=== PATIENT | female | born 1955 | race Caucasian/White ===

== ENCOUNTER 2020-03-15 05:18 | Inpatient (IN) ==
--- NOTE | 2020-03-15 05:49 | Emergency Department Note ---
Impression & Plan Dysphagia, Dental infection ED Provider Note NAME: ASHIA CARRILLO AGE: 64 SEX: F ARRIVES VIA: Walk-In INFORMANT: Patient ED PROVIDER(S): Cristal Escamilla DO CHIEF COMPLAINT: Difficulty swallowing PLAN: Disposition: Admission to the [facility] service Condition: Fair MEDICAL DECISION MAKING: This is a 64-year-old female patient who developed an infected tooth 2 days ago. She went to urgent care yesterday and was started on Augmentin and ibuprofen. Approximately 6 hours ago, the patient developed some difficulty swallowing. The patient was given IV Decadron here in the emergency department along with a dose of IV Unasyn. She went for CT scan of the soft tissues of the neck to rule out submental abscess or airway compromise. The patient has significant supraglottic region edema but no specific abscess or airway compromise. The patient continues to have difficulty with swallowing. She will require ENT evaluation. [facility] for [facility]. Triage Nursing notes reviewed and agree them. Vital Signs: reviewed and remarkable for hypertension Differential diagnosis: Dental abscess, Chad's angina, compromised airway, neck abscess ER treatment provided: IV Decadron IV Unasyn Diagnostics interpreted by me: Cardiac Monitoring: Normal sinus rhythm at a rate of 84 Laboratory studies: See below Imaging studies: As per radiology CT soft tissue neck w con CT DOSE: 444.31 mGycm CLINICAL HISTORY: Neck pain and swelling. Possible abscess. TECHNIQUE: Helical images were acquired during intravenous administration of cc of Optiray 320. A dose lowering technique was utilized adhering to the principles of ALARA. COMPARISON STUDY: None. FINDINGS: The visualized portions of the lung apices are unremarkable. There is mild ectasia of the ascending thoracic aorta. 101 There is a left submandibular edema. No discrete salivary gland masses are visualized. There is no pathologic adenopathy by size criteria. Mildly prominent left jugulodigastric lymph nodes are likely reactive There are no fluid collections suspicious for abscess. There is left supraglottic edema. There is mild narrowing of the airway. There is effacement the left piriform sinus. There is a 12 mm hypodensity centrally on the left which is mildly narrowing the airway. This could represent focal edema, a polyp, or mucous secretion. ENT consultation for direct visualization is recommended in follow-up.. There is left parapharyngeal edema with inflammatory changes involving the left submandibular gland. There is mild left facial edema. There is poor dentition with multiple dental caries. IMPRESSION: 1. Poor dentition with multiple dental caries 2. Left parapharyngeal edema. There also involves the left submandibular gland. There is mild left facial edema. 3. 12 mm hypodensity involving the left supraglottic region with effacement of left piriform sinus. This could represent focal edema, a polyp, or mucous secretion. ENT consultation for direct visualization is recommended in follow-up 4. No current evidence of a focal abscess. HPI: 64/F arrives for evaluation of dysphagia. The patient developed an infected tooth on Sunday afternoon. On Sunday afternoon, the patient went to urgent care where she was prescribed Augmentin and ibuprofen. Around 0 last evening, the patient developed some dysphagia. The patient was concerned this morning when she was having increased difficulty swallowing and discomfort to the left side of her neck. ROS: See above HPI for pertinent positives & negatives. A total of 10 systems reviewed and were otherwise negative. PAST MEDICAL HISTORY:See Below PAST SURGICAL HISTORY:See Below FAMILY HISTORY:See Below SOCIAL HISTORY:See Below HOME MEDICATIONS:See list ALLERGIES:None VITALS:See Below PHYSICAL EXAMINATION: HEENT: Head - normocephalic and atraumatic Pupils are equal, round, and reactive to light. Extraocular eye muscles are intact, and sclera are anicteric. Nose - moist nasal mucosa without discharge. Mouth - moist buccal mucosa with poor dentition. There is 1 remaining left lower molar that appears to be infected with surrounding gingival edema and erythema. Oropharynx is nonerythematous and there is no tonsillar exudate or edema noted. Neck: A fullness to the left side of her neck that is slightly painful to touch. There is no edema or fullness to the submental region of her neck. She has mildly enlarged left-sided anterior cervical lymph nodes Heart: Regular rate and rhythm. There is a normal S1 and S2 with no murmurs, clicks, or gallops appreciated. Lungs: Clear to auscultation bilaterally with no wheezes, rales, or rhonchi. Abdomen: Soft, completely nontender, nondistended, with good bowel sounds. There are no palpable pulsatile masses or hepatosplenomegaly. There is no guarding, rigidity, or rebound noted. Extremities: No evidence of cyanosis, clubbing, or edema. There are easily palpable peripheral pulses. Skin: warm and dry with good turgor and no rashes. ED COURSE: Times/Reassessments: 0530: The patient was evaluated in room B4. A complete history and physical was performed. An IV lock was initiated and labs were drawn as above. An order was placed for continuous cardiac monitoring. The patient was in a normal sinus rhythm at a rate of 93. The patient will be given a dose of IV Decadron. 0650: Patient was reevaluated at this time. The patient will be given a dose of IV Unasyn. 0725: I discussed the case with Dr. Montiel from radiology. 0800: I [facility] Cristal Escamilla DO Past Med/Surg History Medical History (Updated 03/15/20 @ 08:04 by Cristal Escamilla DO) Breast cancer Fall Fracture of right distal radius Head injury Polycythemia vera Right distal ulnar fracture Right rib fracture Traumatic hematoma of forehead Surgical History History of colon resection History of mastectomy Previous section Family History Other No pertinent family history in first degree relatives Social History Smoking Status: Never smoker Preferred Language: Chadian Feels Safe at Home: Yes Allergies Allergies Allergy/AdvReac Type Severity Reaction Status Date / Time No Known Allergies Allergy Verified 03/15/20 06:38 Home Meds Home Medications Medication Instructions Recorded Confirmed allopurinol 300 mg PO DAILY 08/15/18 03/15/20 anastrozole 1 mg PO DAILY 08/15/18 03/15/20 aspirin 81 mg PO DAILY 08/15/18 03/15/20 calcium carbonate-vitamin D3 1 cap PO DAILY 08/15/18 03/15/20 [Calcium 600 + D(3)] magnesium oxide 400 mg PO DAILY 08/15/18 03/15/20 methylcellulose (laxative) 1 dose PO DAILY 08/15/18 03/15/20 [Citrucel] metoprolol tartrate 12.5 mg PO HS 08/15/18 03/15/20 omega 9-kce-fen-fish oil [Fish Oil] 1 cap PO DAILY 08/15/18 03/15/20 amoxicillin-pot clavulanate 1 tab PO BID 03/15/20 03/15/20 ruxolitinib [Jakafi] 20 mg PO AMPM 03/15/20 03/15/20 Results & Data (ED) Vital Signs Vital Signs - 24 hr 03/15/20 05:20 03/15/20 05:23 03/15/20 07:20 Temperature 37.1 C Temperature Source Oral Pulse Rate 93 H Pulse Rate [Apical] 84 Pulse Rhythm Regular Pulse Strength Normal Respiratory Rate 16 20 18 Respiratory Effort / Characteristics Non-Labored Spontaneous Respiratory Depth Normal Respiratory Pattern Regular Blood Pressure 155/83 H Blood Pressure [Left Arm] 167/82 H 162/86 H Blood Pressure Mean 107 Blood Pressure Mean [Left Arm] 110 111 Blood Pressure Position Sitting Pulse Oximetry 95 96 95 Oxygen Delivery Method Room Air Room Air Room Air Sepsis Recent Fever Within 48 Hours No Sepsis New/Unexplained Change in Mental Status N/A Sepsis Action Taken by Nursing No Action Required Laboratory Data Result diagrams: 03/15/20 05:45 03/15/20 05:45 Lab Results 03/15/20 03/15/20 03/15/20 Range/Units 05:45 05:45 05:45 WBC 12.86 H (4.8-10.8) K/uL RBC 6.21 H (4.2-5.4) M/uL Hgb 13.0 (12.0-16.0) g/dL POC Hgb (12.0-16.0) g/dl Hct 42.9 (37-47) % POC Hct (37-47) % MCV 69.1 L (80-100) fL MCH 20.9 L (25-34) pg MCHC 30.3 L (32-36) g/dL RDW Std Deviation 48.7 H (36.4-46.3) fL RDW Coeff of Ruiz 19.8 H (11.5-14.5) % Plt Count 125 L (130-400) K/uL Immature Gran % (Auto) 0.5 % Neut % (Auto) 92.7 % Lymph % (Auto) 3.2 % Lipscomb % (Auto) 3.0 % Eos % (Auto) 0.3 % Baso % (Auto) 0.3 % Neut # (Auto) 11.92 H (1.4-6.5) K/uL Lymph # (Auto) 0.41 L (1.2-3.4) K/uL Lipscomb # (Auto) 0.38 (0.11-0.59) K/uL Eos # (Auto) 0.04 (0-0.5) K/uL Baso # (Auto) 0.04 (0-0.2) K/uL Immature Gran # (Auto) 0.07 H (0.00-0.02) K/uL Absolute Nucleated RBC 0.02 H (0-0) K/uL Nucleated RBC % (auto) 0.1 % Platelet Estimate Decreased L (Normal) Microcytosis Present Ovalocytes 1+ PT 12.7 H (9.0-12.0) Seconds INR 1.2 H (0.9-1.1) POC Sodium (135-144) mmol/L Sodium 141 (136-145) mmol/L POC Potassium (3.3-5.0) mmol/L Potassium 3.7 (3.5-5.1) mmol/L POC Chloride (101-112) mmol/L Chloride 107 (98-107) mmol/L Carbon Dioxide 27 (21-32) mmol/L POC Total CO2 (24-31) mmol/L Anion Gap 7.0 (3-11) POC Anion Gap (16-25) mmol/L POC BUN (7-18) mg/dl BUN 9 (7-18) mg/dl Creatinine 0.59 L (0.6-1.2) mg/dl POC Creatinine (0.6-1.3) mg/dl Est Cr Clr Drug Dosing 99.4 ml/min Est GFR ( Amer) 110.7 Est GFR (Non-Af Amer) 95.5 BUN/Creatinine Ratio 15.0 (10-20) Glucose 144 H (70-99) mg/dl POC Glucose (other) (70-99) mg/dl Calcium 8.8 (8.5-10.1) mg/dl POC Ioniz Calcium Margarette (1.12-1.32) mmol/l Total Bilirubin 0.8 (0.2-1) mg/dl AST 10 L (15-37) U/L ALT 22 (12-78) U/L Alkaline Phosphatase 58 (45-117) U/L Total Protein 6.6 (6.4-8.2) gm/dl Albumin 3.7 (3.4-5.0) gm/dl Globulin 2.9 (2.5-4.0) gm/dl Albumin/Globulin Ratio 1.3 (0.9-2) 03/15/20 Range/Units 05:58 WBC (4.8-10.8) K/uL RBC (4.2-5.4) M/uL Hgb (12.0-16.0) g/dL POC Hgb 14.3 (12.0-16.0) g/dl Hct (37-47) % POC Hct 42 (37-47) % MCV (80-100) fL MCH (25-34) pg MCHC (32-36) g/dL RDW Std Deviation (36.4-46.3) fL RDW Coeff of Ruiz (11.5-14.5) % Plt Count (130-400) K/uL Immature Gran % (Auto) % Neut % (Auto) % Lymph % (Auto) % Lipscomb % (Auto) % Eos % (Auto) % Baso % (Auto) % Neut # (Auto) (1.4-6.5) K/uL Lymph # (Auto) (1.2-3.4) K/uL Lipscomb # (Auto) (0.11-0.59) K/uL Eos # (Auto) (0-0.5) K/uL Baso # (Auto) (0-0.2) K/uL Immature Gran # (Auto) (0.00-0.02) K/uL Absolute Nucleated RBC (0-0) K/uL Nucleated RBC % (auto) % Platelet Estimate (Normal) Microcytosis Ovalocytes PT (9.0-12.0) Seconds INR (0.9-1.1) POC Sodium 141 (135-144) mmol/L Sodium (136-145) mmol/L POC Potassium 3.7 (3.3-5.0) mmol/L Potassium (3.5-5.1) mmol/L POC Chloride 104 (101-112) mmol/L Chloride (98-107) mmol/L Carbon Dioxide (21-32) mmol/L POC Total CO2 24 (24-31) mmol/L Anion Gap (3-11) POC Anion Gap 18.0 (16-25) mmol/L POC BUN 9 (7-18) mg/dl BUN (7-18) mg/dl Creatinine (0.6-1.2) mg/dl POC Creatinine 0.5 L (0.6-1.3) mg/dl Est Cr Clr Drug Dosing ml/min Est GFR ( Amer) Est GFR (Non-Af Amer) BUN/Creatinine Ratio (10-20) Glucose (70-99) mg/dl POC Glucose (other) 149 H (70-99) mg/dl Calcium (8.5-10.1) mg/dl POC Ioniz Calcium Margarette 1.19 (1.12-1.32) mmol/l Total Bilirubin (0.2-1) mg/dl AST (15-37) U/L ALT (12-78) U/L Alkaline Phosphatase (45-117) U/L Total Protein (6.4-8.2) gm/dl Albumin (3.4-5.0) gm/dl Globulin (2.5-4.0) gm/dl Albumin/Globulin Ratio (0.9-2) Administered Medications Discontinued Medications Dexamethasone (Dexamethasone Sod Inj 10 Mg/Ml Vial) 10 mg IV NOW ONE Stop: 03/15/20 06:59 Last Admin: 03/15/20 07:03 Dose: 10 mg Documented by: [id number] Ampicillin Sodium/Sulbactam Sodium 3,000 mg/ Sodium Chloride 108 mls @ 200 mls/hr IV NOW STA; Protocol Stop: 03/15/20 08:01 Last Admin: 03/15/20 07:50 Dose: 200 mls/hr Documented by: [id number] Ioversol (Ioversol 100ml) 100 ml IV ONCE ONE Stop: 03/15/20 06:04 Last Admin: 03/15/20 06:03 Dose: 93 ml Documented by: [id number] Discharge Plan Visit Data Chief Complaint: Throat Pain Stated Complaint: TOOTH ABSCESS - THROAT SWELLING ED Provider: Cristal Escamilla Discharge Problem: Dysphagia, Dental infection Forms Stand Alone Forms: [facility] Prescriptions Prescriptions: No Action amoxicillin-pot clavulanate 875-125 mg tablet 1 tab PO BID RF: 0 Jakafi 20 mg tablet 20 mg PO AMPM RF: 0 anastrozole 1 mg tablet 1 mg PO DAILY RF: 0 aspirin 81 mg Tablet,Delayed Release (Dr/Ec) 81 mg PO DAILY RF: 0 Citrucel 500 mg Tablet 1 dose PO DAILY RF: 0 allopurinol 300 mg tablet 300 mg PO DAILY RF: 0 metoprolol tartrate 25 mg tablet 12.5 mg PO HS RF: 0 Calcium 600 + D(3) 600 mg calcium- 200 unit Capsule 1 cap PO DAILY RF: 0 omega 2-[id number]-[id number]-fish oil [Fish Oil] 1,000 mg (120 mg-180 mg) Capsule 1 cap PO DAILY RF: 0 magnesium oxide 400 mg magnesium Tablet 400 mg PO DAILY RF: 0 Discharge Problem: Dysphagia Qualifiers: Dysphagia type: other dysphagia Qualified Code(s): R13.19 - Other dysphagia
[2020-03-15 06:02] LABS: Mean Corpuscular Hgb Conc 30.3 g/dL (32-36); Nucleated RBC # (auto) 0.02 K/uL (0-0); Nucleated RBC % (auto) 0.1 %
[2020-03-15] MEDS ORDERED: IOVERSOL 100ml IV ONE (06:03)
[2020-03-15 06:11] LABS: iSTAT Creatinine 0.5 mg/dl (0.6-1.3); iSTAT Hemoglobin 14.3 g/dl (12.0-16.0); iSTAT Ionized Calcium 1.19 mmol/l (1.12-1.32); iSTAT Potassium 3.7 mmol/L (3.3-5.0)
[2020-03-15 06:15] LABS: INR 1.2 (0.9-1.1); Prothrombin Time 12.7 Seconds (9.0-12.0)
[2020-03-15 06:18] LABS: Albumin Level 3.7 gm/dl (3.4-5.0); Calcium 8.8 mg/dl (8.5-10.1); Creatinine Clr Calc Pharmacy 99.4 ml/min; Est GFR (African American) 110.7; Est GFR (Non-African American) 95.5; Potassium 3.7 mmol/L (3.5-5.1)
[2020-03-15 06:19] LABS: Hematocrit (blood only) 42.9 % (37-47); Mean Corpuscular Hemoglobin 20.9 pg (25-34); Mean Corpuscular Volume 69.1 fL (80-100); RDW Coefficient of Variation 19.8 % (11.5-14.5); RDW Standard Deviation 48.7 fL (36.4-46.3); Red Blood Count 6.21 M/uL (4.2-5.4); White Blood Count 12.86 K/uL (4.8-10.8)
[2020-03-15 06:21] LABS: Albumin Globulin Ratio 1.3 (0.9-2); Bilirubin,Total 0.8 mg/dl (0.2-1); Globulin 2.9 gm/dl (2.5-4.0); Total Protein 6.6 gm/dl (6.4-8.2)
[2020-03-15 06:23] LABS: Basophils # (auto) 0.04 K/uL (0-0.2); Basophils % (auto) 0.3 %; Eosinophils # (auto) 0.04 K/uL (0-0.5); Eosinophils % (auto) 0.3 %; Immature Granulocytes # (auto) 0.07 K/uL (0.00-0.02); Immature Granulocytes % (auto) 0.5 %; Lymphocytes # (auto) 0.41 K/uL (1.2-3.4); Lymphocytes % (auto) 3.2 %; Microcytosis Present; Monocytes # (auto) 0.38 K/uL (0.11-0.59); Neutrophils # (auto) 11.92 K/uL (1.4-6.5); Neutrophils % (auto) 92.7 %; Ovalocytes 1+; Platelet Count 125 K/uL (130-400); Platelet Estimate Decreased (Normal)
[2020-03-15] MEDS ORDERED: DEXAMETHASONE SOD INJ 10 MG/ML VIAL IV ONE (06:58)
[2020-03-15] MEDS ORDERED: AMPICILLIN/SULBACTAM SOD 3,000 MG in 0.9 % SODIUM CHLORIDE 100 ML IV STA (07:29)
--- NOTE | 2020-03-15 07:33 | CT Scan Report ---
CT soft tissue neck w con CT DOSE: 444.31 mGycm CLINICAL HISTORY: Neck pain and swelling. Possible abscess. TECHNIQUE: Helical images were acquired during intravenous administration of cc of Optiray 320. A do se lowering technique was utilized adhering to the principles of ALARA. COMPARISON STUDY: None. FINDINGS: The visualized portions of the lung apices are unremarkable. There is mild ectasia of the a scending thoracic aorta. 101 There is a left submandibular edema. No discrete salivary gland masses are visualized. There is no pathologic adenopathy by size criteria. Mildly prominent left jugulodigastric lymph nodes are likely reactive There are no fluid collections suspicious for abscess. There is left supraglottic edema. There is mild narrowing of the airway. There is effacement the left piriform sinus. There is a 12 mm hypodensity centrally on the left which is mildly narrowing the air way. This could represent focal edema, a polyp, or mucous secretion. ENT consultation for direct visu alization is recommended in follow-up.. There is left parapharyngeal edema with inflammatory changes involving the left submandibular gland. There is mild left facial edema. There is poor dentition with multiple dental caries. IMPRESSION: 1. Poor dentition with multiple dental caries 2. Left parapharyngeal edema. There also involves the left submandibular gland. There is mild left fa cial edema. 3. 12 mm hypodensity involving the left supraglottic region with effacement of left piriform sinus. T his could represent focal edema, a polyp, or mucous secretion. ENT consultation for direct visualizat ion is recommended in follow-up 4. No current evidence of a focal abscess. ACT 112: Negative or not required by law. Electronically signed by: German Montiel M.D. 03/15/2020 7:32 AM
[2020-03-15] MEDS ORDERED: SODIUM CHLORIDE 0.9% 1000ML 1,000 ML IV SCH (09:15)
--- NOTE | 2020-03-15 09:24 | History & Physical Report ---
Date of Service March 15, 2020 Assessment & Plan (1) Dental abscess: (2) Dysphagia: This is a pleasant 64-year-old female who has significant past medical history of right breast CA status post mastectomy on anastrozole therapy, polycythemia vera, allergic rhinitis, history of PVC, history of uric acid nephrolithiasis, history of diverticulosis status post sigmoid resection who presents to ED secondary to left-sided tooth pain worsening with associated difficulty swallowing x2 days. In ED patient remained hemodynamically stable. She received IV Unasyn and 10 mg IV Decadron with improvement of symptoms. Lab work notable for WBC 12.86k, H&H 13.0 and 42.9, platelet 125, BUN 9, crea tinine 0.59, glucose 144. Soft tissue CT of neck revealed left parapharyngeal edema along with 10 mm hypodensity involving the left supraglottic region with effacement of the left piriform sinus which could represent focal edema, polyp or mucous secretion. ENT consultation is advised. No current evidence of focal abscess. admit to med tele continue IV Unasyn Continue IV decadron 10mg QID consult ENT Dr. Evans NPO with sips/chips/meds until discussed with ENT monitor airway closely (3) Polycythemia vera: continue Jakafi pt receives monthly phlebotomies follows Dr. Dougie Harman H/H 13 and 42 today, Plt 125 (4) PVCs (premature ventricular contractions): continue metoprolol (5) Uric acid nephrolithiasis: continue allopurinol (6) DVT prophylaxis: SQ Lovenox Disposition: admit to med tele Follow up: PCP Dr. Wolfe upon discharge FULL CODE Pt was seen and examined in collaboration with Dr. Jeffery, please see addendum History of Present Illness Chief Complaint: Tooth abscess with worse swelling and pain x 2 days. Primary Care Provider: Celestine Wolfe, This is a pleasant 64-year-old female who has significant past medical history of right breast CA status post mastectomy on anastrozole therapy, polycythemia vera, allergic rhinitis, history of PVC, history of uric acid nephrolithiasis, history of diverticulosis status post sigmoid resection who presents to ED secondary to left-sided tooth pain worsening with associated difficulty swallowing x2 days. She states approximately 2 days ago she developed abscess on one of her bottom left tooth. She has noticed increased pain, swelling, low- grade temperature and as of yesterday difficulty swallowing solids. She was seen in urgent care yesterday and started on Augmentin. She has had 2 doses. She presented to ED this morning due to no improvement in swallowing and concern if it were to worsen. She states temp at home has been 99 Fahrenheit. She denies any chills, sweats, lightheadedness, dizziness, drooling, shortness of breath, cough, nausea, vomiting, abdominal pain, change in bowel or urinary habits. She does have difficulty opening mouth due to pain, but denies difficulty swallowing liquids. She does have prior history of tooth abscess on her right side but not to this extent. In ED patient remained hemodynamically stable. She received IV Unasyn and 10 mg IV Decadron with improvement of symptoms. Lab work notable for WBC 12.86k, H&H 13.0 and 42.9, platelet 125, BUN 9, creatinine 0.59, glucose 144. Soft tissue CT of neck revealed left parapharyngeal edema along with 10 mm hypodensity involving the left supraglottic region with effacement of the left piriform sinus which could represent focal edema, polyp or mucous secretion. ENT consultation is advised. No current evidence of focal abscess. Allergies Allergy/AdvReac Type Severity Reaction Status Date / Time No Known Allergies Allergy Verified 03/15/20 06:38 Home Medications Home Medications Medication Instructions Recorded Confirmed Type allopurinol 300 mg PO DAILY 08/15/18 03/15/20 History anastrozole 1 mg PO DAILY 08/15/18 03/15/20 History aspirin 81 mg PO DAILY 08/15/18 03/15/20 History calcium carbonate-vitamin D3 1 cap PO DAILY 08/15/18 03/15/20 History [Calcium 600 + D(3)] magnesium oxide 400 mg PO DAILY 08/15/18 03/15/20 History methylcellulose (laxative) 1 dose PO DAILY 08/15/18 03/15/20 History [Citrucel] metoprolol tartrate 12.5 mg PO HS 08/15/18 03/15/20 History omega 9-tud-aen-fish oil [Fish Oil] 1 cap PO DAILY 08/15/18 03/15/20 History amoxicillin-pot clavulanate 1 tab PO BID 03/15/20 03/15/20 History ruxolitinib [Jakafi] 15 mg PO AMPM 03/15/20 03/15/20 History Past Med/Surg History Medical History (Updated 03/15/20 @ 09:26 by Sigrid Bell PA-C) Breast cancer Right status post mastectomy and radiation Polycythemia vera PVCs (premature ventricular contractions) Uric acid nephrolithiasis Surgical History (Updated 03/15/20 @ 09:16 by Sigrid Bell PA-C) History of colon resection Sigmoid secondary to diverticulosis History of mastectomy History of tubal ligation Previous section x3 Family History Mother Coronary heart disease Failed CABG (coronary artery bypass graft) secondary to complications during CABG Father Diabetes Coronary heart disease Social History (Updated 03/15/20 @ 09:17 by Sigrid Bell PA-C) Smoking Status: Unknown if ever smoked Hx Alcohol Use: No Hx Substance Use: No Preferred Language: Occitan Communication Ability: Effective Resource Forester Required: No Beliefs That Will Affect Care: None marital status: Current Living Situation: Spouse Other Information That Helps Us Care for You: No Feels Safe at Home: Yes Safety Concerns: Feels Safe At This Time Assistive Devices: None Review of Systems Review of Systems: All systems reviewed & are unremarkable except as noted in HPI & below Physical Exam Physical Exam: Constitutional: WD/WN, vitals as above, NAD, sitting up in bed, pleasant, conversing easily Head: Normocephalic, Atraumatic Eyes: PERRL, conjunctivae normal, anicteric sclerae ENMT: external ear and nose normal, +trismus, difficult posterior pharynx examination, uvula midline and dose rise, Neck: trachea midline, no thyromegaly + L submandibular and superior cervical adenopathy, pain to palpation, no surrounding erythema, no tripoding, drooling Respiratory: normal respiratory effort, lungs clear to auscultation, no wheeze, rales, rhonchi. Normal insp/exp effort, no accessory muscle use Cardiovascular: RRR, 1/6 OFE noted RUSB, no edema Vessels: no JVD or carotid bruit Chest: normal inspection of chest Abdomen: normal bowel sounds, soft, nontender, no hepatosplenomegaly Musculoskeletal: no cyanosis or clubbing, extremities motor strength 5/5 Skin: no rashes, warm and dry normal turgor Neurologic: PERRL, EOMI, accommodation nl, no face palsy, no dysarthria CN's II-XI intact bilaterally and moves all extremities Psychiatric: A+Ox3, euthymic affect Lymphatic: no cervical or axillary lymphadenopathy : deferred Results & Data Results & Data ([facility]) Vital Signs (Past 12 Hours) Vital Signs Temp Pulse Pulse Resp BP BP Pulse Ox 03/15/20 07:20 84 18 162/86 H 95 03/15/20 05:23 37.1 C 93 H 20 155/83 H 96 03/15/20 05:20 16 167/82 H 95 Laboratory Results Short CBC 03/15/20 Range/Units 05:45 WBC 12.86 H (4.8-10.8) K/uL Hgb 13.0 (12.0-16.0) g/dL Hct 42.9 (37-47) % Plt Count 125 L (130-400) K/uL BMP 03/15/20 05:45 Sodium 141 Potassium 3.7 Chloride 107 Carbon Dioxide 27 BUN 9 Creatinine 0.59 L Glucose 144 H Calcium 8.8 Liver Function 03/15/20 Range/Units 05:45 Total Bilirubin 0.8 (0.2-1) mg/dl AST 10 L (15-37) U/L ALT 22 (12-78) U/L Alkaline Phosphatase 58 (45-117) U/L Albumin 3.7 (3.4-5.0) gm/dl Diagnostic Findings Soft Tissue Neck CT: IMPRESSION: 1. Poor dentition with multiple dental caries 2. Left parapharyngeal edema. There also involves the left submandibular gland. There is mild left facial edema. 3. 12 mm hypodensity involving the left supraglottic region with effacement of left piriform sinus. This could represent focal edema, a polyp, or mucous secretion. ENT consultation for direct visualization is recommended in follow-up 4. No current evidence of a focal abscess. Medications Administered Discontinued Medications Dexamethasone (Dexamethasone Sod Inj 10 Mg/Ml Vial) 10 mg IV NOW ONE Stop: 03/15/20 06:59 Last Admin: 03/15/20 07:03 Dose: 10 mg Documented by: [id number] Ampicillin Sodium/Sulbactam Sodium 3,000 mg/ Sodium Chloride 108 mls @ 200 mls/hr IV NOW STA; Protocol Stop: 03/15/20 08:01 Last Infusion: 03/15/20 08:27 Dose: 0 mls/hr Documented by: [id number] Admin: 03/15/20 07:50 Dose: 200 mls/hr Documented by: [id number] Ioversol (Ioversol 100ml) 100 ml IV ONCE ONE Stop: 03/15/20 06:04 Last Admin: 03/15/20 06:03 Dose: 93 ml Documented by: [id number] Code Status & VTE Plan VTE Prophylaxis Plan VTE Prophylaxis will be ordered: Yes Supervising Physician Co-Signing Physician Notes Patient seen and examined by me, care coordinated with Sigrid Bell PA-C, please refer to her note above for further detail. Pt is a 64 y/o female who has significant past medical history of right breast CA status post mastectomy on anastrozole therapy, polycythemia vera, allergic rhinitis, history of PVC, history of uric acid nephrolithiasis, history of diverticulosis status post sigmoid resection who presents to ED secondary to left-sided tooth pain worsening with associated difficulty swallowing x2 days. In ED patient remained hemodynamically stable. She received IV Unasyn and 10 mg IV Decadron with improvement of symptoms. Soft tissue CT of neck revealed left parapharyngeal edema along with 10 mm hypodensity involving the left supraglottic region with effacement of the left piriform sinus which could represent focal edema, polyp or mucous secretion. ENT consultation is advised. No current evidence of focal abscess. She is currently sitting up in bed, in acute distress. She says that now her throat feels better, after receiving steroid and antibiotic. ENT consulted for further evaluation, and recommends close monitoring, as she may possibly need intubation if her respiratory status worsens. Continue Unasyn and Decadron, OMFS consultation recommended. She has broken left lower molar but no abscess noted on CT. Left chin is tender to palpation and patient cannot fully open her mouth. Currently she is breathing without difficulty, clear to auscultation bilaterally without any wheezing rhonchi or crackles. Heart sounds regular. Abdomen soft, nontender, nondistended. She is alert and oriented and able to answer questions appropriately. Moves all 4 extremities spontaneously. Skin is warm dry, well-perfused. Jose D David MD (1) Dysphagia Dysphagia type: other dysphagia Qualified Code(s): R13.19 - Other dysphagia
[2020-03-15] MEDS ORDERED: OXYMETAZOLINE 0.05% 30 ML BTL NAE PRN (10:23)
[2020-03-15] MEDS ORDERED: ACETAMINOPHEN 325 MG TAB PO PRN (10:28)
[2020-03-15] MEDS ORDERED: ALUMINUM/MAGNESIUM SUSP 30 ML UDC PO PRN (10:28)
[2020-03-15] MEDS ORDERED: POLYETHYLENE (MIRALAX) 17 GM PACK PO PRN (10:28)
[2020-03-15] MEDS ORDERED: ONDANSETRON INJ 2 MG/ML 2 ML VIAL IV PRN (10:28)
[2020-03-15] MEDS ORDERED: MAGNESIUM HYDROXIDE SUSP 30 ML UDC PO PRN (10:28)
[2020-03-15] MEDS: ANASTROZOLE 1 MG TAB PO SCH (12:18)
[2020-03-15] MEDS: ASPIRIN 81 MG ECTAB PO SCH (12:19)
[2020-03-15] MEDS: OMEGA-3 (PURIFIED FISH OIL) 1 GM CAP PO SCH (12:19)
[2020-03-15] MEDS: allopurinoL 300 MG TAB PO SCH (12:19)
[2020-03-15] MEDS: MAGNESIUM OXIDE 400 MG TAB PO SCH (12:19)
--- NOTE | 2020-03-15 12:32 | ENT Consultation ---
Date of Consultation March 15, 2020 Assessment & Plan (1) Dental abscess: Would defer to OMFS regarding treatment of abscess, but would recommend 10mg dexamethasone q 6-8 hours for 24-36hours along with IV antibiotics. Should go home on prednisone taper. If patient requires intubation, glidescope may be useful, but would defer to OMFS and anesthesia. Would recommend continuous pulse ox, with low threshold to transfer to ICU if any respiratory distress. Would like to see patient in 3 weeks for repeat scope to confirm no mass or lesion that was hidden by edema. Present on Admission?: Yes History of Present Illness Reason for Consultation: throat swelling in setting of tooth abscess Attending Physician: Giacomo Jeffery MD History of Present Illness Hx of progressive facial swelling with hx of tooth abscess seen on CT. Also being evaluated by oral surgery. CT was concerning for some airway effacement, but since receiving dexamethasone, patient improves symptoms much improved. Main concern was swallowing. Allergies Allergy/AdvReac Type Severity Reaction Status Date / Time No Known Allergies Allergy Verified 03/15/20 06:38 Home Medications Home Medications Medication Instructions Recorded Confirmed Type allopurinol 300 mg PO DAILY 08/15/18 03/15/20 History anastrozole 1 mg PO DAILY 08/15/18 03/15/20 History aspirin 81 mg PO DAILY 08/15/18 03/15/20 History calcium carbonate-vitamin D3 1 cap PO DAILY 08/15/18 03/15/20 History [Calcium 600 + D(3)] magnesium oxide 400 mg PO DAILY 08/15/18 03/15/20 History methylcellulose (laxative) 1 dose PO DAILY 08/15/18 03/15/20 History [Citrucel] metoprolol tartrate 12.5 mg PO HS 08/15/18 03/15/20 History omega 0-ckz-tqd-fish oil [Fish Oil] 1 cap PO DAILY 08/15/18 03/15/20 History amoxicillin-pot clavulanate 1 tab PO BID 03/15/20 03/15/20 History ruxolitinib [Jakafi] 15 mg PO AMPM 03/15/20 03/15/20 History Patient History Medical History (Updated 03/15/20 @ 09:26 by Sigrid Bell PA-C) Breast cancer Right status post mastectomy and radiation Polycythemia vera PVCs (premature ventricular contractions) Uric acid nephrolithiasis Surgical History (Updated 03/15/20 @ 09:16 by Sigrid Bell PA-C) History of colon resection Sigmoid secondary to diverticulosis History of mastectomy History of tubal ligation Previous section x3 Family History Mother Coronary heart disease Failed CABG (coronary artery bypass graft) secondary to complications during CABG Father Diabetes Coronary heart disease Social History (Updated 03/15/20 @ 09:17 by Sigrid Bell PA-C) Smoking Status: Never smoker Hx Alcohol Use: Yes Alcohol Intake Frequency: Monthly or Less Alcohol Intake Frequency Comment: Rare alcohol use Hx Substance Use: No Preferred Language: Burkinan marital status: Current Living Situation: Spouse Feels Safe at Home: Yes Review of Systems Review of Systems: All systems reviewed & are unremarkable except as noted in HPI & below Physical Exam Physical Exam: General: AAOx3 Oral cavity: floor of mouth soft, no signs of yehuda's angina Procedure: flexible nasopharyngoscopy performed after decongestion with afrin Scope advanced through the left nostril. Nasopharynx and oropharynx wnl, patient does have some billowy edema of the left piriform that depending on positioning does go over the airway partially, but I am able to visualize both cords bilaterally, supraglottis itself is without edema as is the subglottis. No masses or lesions seen. Results & Data ([facility] [place]) Vital Signs (Past 12 Hours) Vital Signs Temp Pulse Pulse Resp BP BP Pulse Ox 03/15/20 11:43 37.1 C 93 H 18 148/83 H 90 03/15/20 09:44 140/82 03/15/20 09:00 88 18 146/77 H 95 03/15/20 07:20 84 18 162/86 H 95 03/15/20 05:23 37.1 C 93 H 20 155/83 H 96 03/15/20 05:20 16 167/82 H 95
[2020-03-15] MEDS ORDERED: GLYCOPYRROLATE 0.2 MG/ML VIAL IV PRN (13:13)
[2020-03-15] MEDS: AMPICILLIN/SULBACTAM SOD 3,000 MG in 0.9 % SODIUM CHLORIDE 100 ML IV SCH ×2 (14:49→20:46)
[2020-03-15] MEDS: dexAMETHasone 10 MG in SYRINGE 0 ML IV SCH ×2 (15:51→20:40)
--- NOTE | 2020-03-15 19:03 | Surgery Consultation ---
Date of Consultation March 15, 2020 History of Present Illness Attending Physician: Giacomo Jeffery MD Consult emergency ----Oral Maxillofacial Surgery Exam Present Complaint: I have pain/swelling/drainage from my infected teeth. I had so much pain yesterday I went to urgent care got antibiotics, this AM difficulty swallowing, eating. Was admitted for throat and jaw swelling. Appreciate ENT consult and suggested follow up. Dental pain and swelling of gums have been ongoing for a while they would come and go. Last dental exam over 5 years ago. A detailed oral exam was completed: Finding--Swollen Muco buccal fold (subperiosteal and submandibular space left lower jaw) Very tender gingival tissue with deep pocket formation.Posterior Teeth are in an abnormal position and removal is clinical indicated. The teeth are fractured, impacted and need emergency removal JEREMIAS. The CT with contrast does not show teeth and the jaw bone I will plan a CT w/o contrast. From clinical exam the following teeth need removal JEREMIAS with I&D or left side submandibular and Subperiosteal space. Soft tissue of the floor of the mouth is swollen left side , tongue, hard/soft palate are normal posterior pharyngeal area show CT scans of swelling see CT report and ENT consult and results of the [employer]CH[employer] Oral Care---Overall oral care is poor Occlusion---Class I missing and Fx teeth TMJ exam: No pop, clicking, pain, good ROM, No history of TMJ injury or dysfunction Periodontal exam---very poor Neck is supple, FROM, Able to extend and flex neck w/o difficulty, no masses, no abnormalities, no airway issues, no evidence of sleep apnea. Plan: Set up with general anesthesia in hospital per this admission and complexity of the procedure Risks reviewed (see below) head and Neck exam completed I reviewed the treatment plan and consent with the patient. Understanding was expressed. Time was given for questions regarding the surgery, risks and post op care. The procedure will be set up tomorrow vs Sun. Review of informed consent with patient. Reason for surgery to remove fractured decayed teeth: removal is indicated and medically necessary. The following teeth are decayed and fractured and removal is indicated JEREMIAS: The following teeth are decayed/fractured--#1,2,3,4,14,15,16,18,19,29,30,31 The following teeth are planned to be removed--see above I&D of the left sublingual/Submandibular and subperiosteal spaces Risks discussed: Pain,swelling,infection, dry socket, delayed healing, nerve injury to face,lips,tongue,chin area which could be permanent (rare). TMJ, jaw stiffness, change in bite (rare), ear pain (referred). Sinus problems like fistula or infection. Need to leave a small root fragment in place to avoid injury to nerve or sinus. Home care reviewed--tooth brushing, rinsing, follow up care with Dr Wright. diet=[id number] dental. Discussed activity level, driving/work while on Rx pain Meds. Plan: COVD TEST CT scan w/o contrast to evaluate the teeth and bone. For the GA and surgery at Hospital Allergies Allergy/AdvReac Type Severity Reaction Status Date / Time No Known Allergies Allergy Verified 03/15/20 06:38 Home Medications Home Medications Medication Instructions Recorded Confirmed Type allopurinol 300 mg PO DAILY 08/15/18 03/15/20 History anastrozole 1 mg PO DAILY 08/15/18 03/15/20 History aspirin 81 mg PO DAILY 08/15/18 03/15/20 History calcium carbonate-vitamin D3 1 cap PO DAILY 08/15/18 03/15/20 History [Calcium 600 + D(3)] magnesium oxide 400 mg PO DAILY 08/15/18 03/15/20 History methylcellulose (laxative) 1 dose PO DAILY 08/15/18 03/15/20 History [Citrucel] metoprolol tartrate 12.5 mg PO HS 08/15/18 03/15/20 History omega 9-eua-bzs-fish oil [Fish Oil] 1 cap PO DAILY 08/15/18 03/15/20 History amoxicillin-pot clavulanate 1 tab PO BID 03/15/20 03/15/20 History ruxolitinib [Jakafi] 15 mg PO AMPM 03/15/20 03/15/20 History Patient History Medical History (Updated 03/15/20 @ 09:26 by Sigrid Bell PA-C) Breast cancer Right status post mastectomy and radiation Polycythemia vera PVCs (premature ventricular contractions) Uric acid nephrolithiasis Surgical History (Updated 03/15/20 @ 09:16 by Sigrid Bell PA-C) History of colon resection Sigmoid secondary to diverticulosis History of mastectomy History of tubal ligation Previous section x3 Family History Mother Coronary heart disease Failed CABG (coronary artery bypass graft) secondary to complications during CABG Father Diabetes Coronary heart disease Social History (Updated 03/15/20 @ 09:17 by Sigrid Bell PA-C) Smoking Status: Unknown if ever smoked Hx Alcohol Use: No Hx Substance Use: No Preferred Language: Malay Communication Ability: Effective Bpm Developer Required: No Beliefs That Will Affect Care: None marital status: Current Living Situation: Spouse Other Information That Helps Us Care for You: No Feels Safe at Home: Yes Safety Concerns: Feels Safe At This Time Assistive Devices: None Results & Data ([facility]) Vital Signs (Past 12 Hours) Vital Signs Temp Pulse Pulse Resp BP Pulse Ox 03/15/20 15:27 85 03/15/20 15:00 37.1 C 85 18 142/81 H 93 03/15/20 14:26 96 H 03/15/20 11:43 37.1 C 93 H 18 148/83 H 90 03/15/20 09:44 140/82 03/15/20 09:00 88 18 146/77 H 95 03/15/20 07:20 84 18 162/86 H 95 PG Care Time/CCT Total # of Minutes Spent Total Time Spent with Patient: Total time spent is greater than 50% in coordination of care (as documented) at patient's floor/unit and/or counseling patient: Coding Level of Care Code 88755 Initial Inpt Care Lvl 3
[2020-03-15] MEDS: RUXOLITINIB PHOSPHATE PO SCH (20:40)
[2020-03-15] MEDS: METOPROLOL TARTRATE 25 MG TAB PO SCH (20:41)
[2020-03-15] MEDS ORDERED: ENOXAPARIN INJ 40 MG/0.4 ML SYR SQ SCH (22:00)
[2020-03-16] MEDS: dexAMETHasone 10 MG in SYRINGE 0 ML IV SCH ×4 (01:50→20:51)
[2020-03-16] MEDS: AMPICILLIN/SULBACTAM SOD 3,000 MG in 0.9 % SODIUM CHLORIDE 100 ML IV SCH ×4 (01:53→20:55)
[2020-03-16 06:34] LABS: Hemoglobin 11.9 g/dL (12.0-16.0); Mean Corpuscular Hemoglobin 20.3 pg (25-34); Mean Corpuscular Volume 69.8 fL (80-100); RDW Coefficient of Variation 19.7 % (11.5-14.5); RDW Standard Deviation 49.8 fL (36.4-46.3); Red Blood Count 5.87 M/uL (4.2-5.4); White Blood Count 14.36 K/uL (4.8-10.8)
[2020-03-16 06:48] LABS: Platelet Count 130 K/uL (130-400)
[2020-03-16 06:49] LABS: Basophils # (auto) 0.02 K/uL (0-0.2); Basophils % (auto) 0.1 %; Eosinophils # (auto) 0.01 K/uL (0-0.5); Eosinophils % (auto) 0.1 %; Hypochromasia Present; Immature Granulocytes # (auto) 0.08 K/uL (0.00-0.02); Immature Granulocytes % (auto) 0.6 %; Lymphocytes # (auto) 0.62 K/uL (1.2-3.4); Lymphocytes % (auto) 4.3 %; Microcytosis Present; Monocytes # (auto) 0.08 K/uL (0.11-0.59); Monocytes % (auto) 0.6 %; Neutrophils # (auto) 13.55 K/uL (1.4-6.5); Neutrophils % (auto) 94.3 %; Ovalocytes 1+; Platelet Estimate Decreased (Normal)
[2020-03-16 06:55] LABS: BUN Creatinine Ratio 29.6 (10-20); Calcium 8.8 mg/dl (8.5-10.1); Creatinine Clr Calc Pharmacy 130.8 ml/min; Est GFR (Non-African American) 104.4; Potassium 3.8 mmol/L (3.5-5.1)
[2020-03-16 07:16] LABS: Estimated Average Glucose 131 mg/dl; Hemoglobin A1C 6.2 % (4.5-5.6)
--- NOTE | 2020-03-16 07:21 | CT Scan Report ---
MAXILLOFACIAL CT CT DOSE: 653.91 mGy.cm HISTORY: need to determine teeth for extraction/ infection TECHNIQUE: Multiaxial CT images of the maxillofacial region were performed and reformatted in the cor onal plane without the use of contrast. A dose lowering technique was utilized adhering to the [employer] [facility] [place]. COMPARISON: None. FINDINGS: The visualized cervical spine, skull base, pterygoid plates, nasal bones, lamina papyracea, orbital floors, mandible, and zygomatic arches are intact. No fractures. The orbits are unremarkable . Multiple dental caries are noted a 3 mm periapical lucency at ADA 11.. No adjacent inflammatory gerard nge or subperiosteal abscess identified. Minimal mucosal thickening within the maxillary sinuses. The mastoid air cells are clear. A few scattered missing teeth are noted. IMPRESSION: 1. No fractures. 2. Multiple dental caries and a few scattered missing teeth. There is a 3 mm periapical lucency at AD A 11. No associated inflammatory change or subperiosteal abscess identified. ACT 112: Negative or not required by law. Electronically signed by: Kulwant Boo M.D. 03/16/2020 7:19 AM
--- NOTE | 2020-03-16 08:42 | Hospitalist Progress Note ---
Date of Service March 16, 2020 Assessment & Plan (1) Dental abscess: (2) Dysphagia: This is a pleasant 64-year-old female who has significant past medical history of right breast CA status post mastectomy on anastrozole therapy, polycythemia vera, allergic rhinitis, history of PVC, history of uric acid nephrolithiasis, history of diverticulosis status post sigmoid resection who presents to ED secondary to left-sided tooth pain worsening with associated difficulty swallowing x2 days. In ED patient remained hemodynamically stable. She received IV Unasyn and 10 mg IV Decadron with improvement of symptoms. Lab work notable for WBC 12.86k, H&H 13.0 and 42.9, platelet 125, BUN 9, crea tinine 0.59, glucose 144. Soft tissue CT of neck revealed left parapharyngeal edema along with 10 mm hypodensity involving the left supraglottic region with effacement of the left piriform sinus which could represent focal edema, polyp or mucous secretion. ENT consultation is advised. No current evidence of focal abscess. admitted to [email or web address], continuous pulse ox, if desatting may need intubation, ICU aware continue IV Unasyn Continue IV decadron 10mg QID consult ENT Dr. Evans Clinically pt feels much better today (03/16), breathing and swallowing feel better OMFS consultation, Dr. Wright - plan for OR later today (03/16) - multiple broken and infected teeth monitor airway closely (3) Polycythemia vera: continue Jakafi pt receives monthly phlebotomies follows Dr. Dougie Harman H/H 13 and 42 today, Plt 125 (4) PVCs (premature ventricular contractions): continue metoprolol (5) Uric acid nephrolithiasis: continue allopurinol (6) DVT prophylaxis: SQ Lovenox - hold lovenox in the evening for surgery (unless changed by Dr. Burgos), cont. with SCDs Disposition: admit to [facility] tele Follow up: PCP Dr. Wolfe upon discharge FULL CODE Admission and Anticipated Discharge Date Admission Date: March 15, 2020 Subjective Pt is laying in bed in NAD. States her breathing and swallowing feels better. She has continuous pulse ox placed and satting in 90s. Seen by Dr. Wright yesterday, plan for OR later today. Currently denies any fever, chills, chest pain, shortness of breath. Review of Systems Review of Systems: All systems reviewed & are unremarkable except as noted in HPI & below Constitutional: no fever and no chills Respiratory: no cough and no dyspnea Cardiovascular: no chest pain and no palpitations Gastrointestinal: no abdominal pain, no nausea and no vomiting Physical Exam Physical Exam: Constitutional: WD/WN, vitals as above, NAD, sitting up in bed, pleasant, conversing easily Head: Normocephalic, Atraumatic Eyes: PERRL, EOMI, conjunctivae normal, anicteric sclerae ENMT: external ear and nose normal, +trismus, difficult posterior pharynx examination, uvula midline and dose rise, Neck: trachea midline, no thyromegaly + L submandibular and superior cervical adenopathy, pain to palpation, no surrounding erythema, drooling Respiratory: normal respiratory effort, lungs clear to auscultation, no wheeze, rales, rhonchi. Normal insp/exp effort, no accessory muscle use Cardiovascular: RRR, 1/6 OFE noted RUSB, no edema Vessels: no JVD or carotid bruit Chest: normal inspection of chest Abdomen: normal bowel sounds, soft, nontender, no hepatosplenomegaly Musculoskeletal: no cyanosis or clubbing, extremities motor strength 5/5 Skin: no rashes, warm and dry normal turgor Neurologic: PERRL, EOMI, accommodation nl, no face palsy, no dysarthria CN's II-XI intact bilaterally and moves all extremities Psychiatric: A+Ox3, euthymic affect Results & Data Results & Data ([facility]) Vital Signs (Past 12 Hours) Vital Signs Temp Pulse Pulse Resp BP Pulse Ox 03/16/20 07:55 36.4 C L 73 18 147/77 H 93 03/16/20 07:44 69 03/16/20 03:54 36.8 C 70 18 158/77 H 94 03/15/20 23:04 36.8 C 82 18 143/80 H 90 Laboratory Results 03/16/20 03/16/20 03/16/20 Range/Units 05:52 05:52 05:52 WBC (4.8-10.8) K/uL RBC (4.2-5.4) M/uL Hgb (12.0-16.0) g/dL Hct (37-47) % MCV (80-100) fL MCH (25-34) pg MCHC (32-36) g/dL RDW Std Deviation (36.4-46.3) fL RDW Coeff of Ruiz (11.5-14.5) % Plt Count (130-400) K/uL Immature Gran % (Auto) % Neut % (Auto) % Lymph % (Auto) % Sawyer % (Auto) % Eos % (Auto) % Baso % (Auto) % Neut # (Auto) (1.4-6.5) K/uL Lymph # (Auto) (1.2-3.4) K/uL Sawyer # (Auto) (0.11-0.59) K/uL Eos # (Auto) (0-0.5) K/uL Baso # (Auto) (0-0.2) K/uL Immature Gran # (Auto) (0.00-0.02) K/uL Platelet Estimate (Normal) Hypochromasia Microcytosis Ovalocytes Sodium 139 (136-145) mmol/L Potassium 3.8 (3.5-5.1) mmol/L Chloride 109 H (98-107) mmol/L Carbon Dioxide 26 (21-32) mmol/L Anion Gap 4.0 (3-11) BUN 13 (7-18) mg/dl Creatinine 0.45 L (0.6-1.2) mg/dl Est Cr Clr Drug Dosing 130.8 ml/min Est GFR ( Amer) 121.0 Est GFR (Non-Af Amer) 104.4 BUN/Creatinine Ratio 29.6 H (10-20) Glucose 176 H (70-99) mg/dl Estimat Average Glucose 131 mg/dl Hemoglobin A1c 6.2 H (4.5-5.6) % Calcium 8.8 (8.5-10.1) mg/dl COVID-19 Eval Order Hepatitis C Ab Screen Pending SARS-CoV-2, RNA, NAAT (NEGATIVE) 03/16/20 03/15/20 03/15/20 Range/Units 05:52 09:50 09:50 WBC 14.36 H (4.8-10.8) K/uL RBC 5.87 H (4.2-5.4) M/uL Hgb 11.9 L (12.0-16.0) g/dL Hct 41.0 (37-47) % MCV 69.8 L (80-100) fL MCH 20.3 L (25-34) pg MCHC 29.0 L (32-36) g/dL RDW Std Deviation 49.8 H (36.4-46.3) fL RDW Coeff of Ruiz 19.7 H (11.5-14.5) % Plt Count 130 (130-400) K/uL Immature Gran % (Auto) 0.6 % Neut % (Auto) 94.3 % Lymph % (Auto) 4.3 % Sawyer % (Auto) 0.6 % Eos % (Auto) 0.1 % Baso % (Auto) 0.1 % Neut # (Auto) 13.55 H (1.4-6.5) K/uL Lymph # (Auto) 0.62 L (1.2-3.4) K/uL Sawyer # (Auto) 0.08 L (0.11-0.59) K/uL Eos # (Auto) 0.01 (0-0.5) K/uL Baso # (Auto) 0.02 (0-0.2) K/uL Immature Gran # (Auto) 0.08 H (0.00-0.02) K/uL Platelet Estimate Decreased L (Normal) Hypochromasia Present Microcytosis Present Ovalocytes 1+ Sodium (136-145) mmol/L Potassium (3.5-5.1) mmol/L Chloride (98-107) mmol/L Carbon Dioxide (21-32) mmol/L Anion Gap (3-11) BUN (7-18) mg/dl Creatinine (0.6-1.2) mg/dl Est Cr Clr Drug Dosing ml/min Est GFR ( Amer) Est GFR (Non-Af Amer) BUN/Creatinine Ratio (10-20) Glucose (70-99) mg/dl Estimat Average Glucose mg/dl Hemoglobin A1c (4.5-5.6) % Calcium (8.5-10.1) mg/dl COVID-19 Eval [facility] C Ab Screen SARS-CoV-2, RNA, NAAT NEGATIVE (NEGATIVE) Medications Administered Current Inpatient Medications Acetaminophen (Acetaminophen 325 Mg Tab) 650 mg PO Q4H PRN PRN Reason: Pain or Fever Stop: 04/14/20 10:27 Al Hydrox/Mg Hydrox/Simethicone (Aluminum/Magnesium Susp 30 Ml Udc) 15 ml PO Q4H PRN PRN Reason: Dyspepsia Stop: 04/14/20 10:27 Allopurinol (Allopurinol 300 Mg Tab) 300 mg PO DAILY [facility] Stop: 04/14/20 10:27 Last Admin: 03/15/20 12:19 Dose: 300 mg Documented by: Anastrozole (Anastrozole 1 Mg Tab) 1 mg PO DAILY [facility] Stop: 04/14/20 10:27 Last Admin: 03/15/20 12:18 Dose: 1 mg Documented by: Aspirin (Aspirin 81 Mg Ectab) 81 mg PO DAILY [facility] Stop: 04/14/20 10:27 Last Admin: 03/15/20 12:19 Dose: 81 mg Documented by: Enoxaparin Sodium (Enoxaparin Inj 40 Mg/0.4 Ml Syr) 40 mg SQ Q24H [facility] Stop: 04/14/20 21:59 Last Admin: 03/15/20 20:46 Dose: 40 mg Documented by: Fish Oil ([place]-3 (Purified Fish Oil) 1 Gm Cap) 1 gm PO DAILY [facility] Stop: 04/14/20 10:59 Last Admin: 03/15/20 12:19 Dose: 1 gm Documented by: Glycopyrrolate (Glycopyrrolate 0.2 Mg/Ml Vial) 0.2 mg IV Q12H PRN PRN Reason: excessive oral secretions Stop: 04/14/20 13:12 Ampicillin Sodium/Sulbactam Sodium 3,000 mg/ Sodium Chloride 108 mls @ 200 mls/hr IV Q6H [facility]; Protocol Stop: 03/25/20 13:59 Last Infusion: 03/16/20 02:26 Dose: Infused Documented by: Dexamethasone 10 mg/ Syringe 2.5 mls @ 1.25 mls/min IV Q6H MICHAEL Stop: 04/14/20 13:59 Last Admin: 03/16/20 01:50 Dose: 1.25 mls/min Documented by: Magnesium Hydroxide (Magnesium Hydroxide Susp 30 Ml Udc) 30 ml PO Q12H PRN PRN Reason: Constipation Stop: 04/14/20 10:27 Magnesium Oxide (Magnesium Oxide 400 Mg Tab) 400 mg PO DAILY [facility] Stop: 04/14/20 10:59 Last Admin: 03/15/20 12:19 Dose: 400 mg Documented by: Methylcellulose (Methylcellulose Powder 454 Gm Jar) 1 gm PO DAILY MICHAEL Stop: 04/15/20 08:59 Metoprolol Tartrate (Metoprolol Tartrate 25 Mg Tab) 12.5 mg PO HS MICHAEL Stop: 04/14/20 20:59 Last Admin: 03/15/20 20:41 Dose: 12.5 mg Documented by: Multivitamins/Minerals (Calcium 600mg + Vit D 400 Iu Tab) 1 tab PO DAILY MICHAEL Stop: 04/15/20 08:59 Ondansetron HCl (Ondansetron Inj 2 Mg/Ml 2 Ml Vial) 4 mg IV Q6H PRN PRN Reason: Nausea Stop: 04/14/20 10:27 Oxymetazoline HCl (Oxymetazoline 0.05% 30 Ml Btl) 1 sprays PASTOR NOW PRN PRN Reason: ENT EVAL Stop: 04/14/20 10:22 Polyethylene Glycol (Polyethylene (Miralax) 17 Gm Pack) 17 gm PO DAILY PRN PRN Reason: Constipation Stop: 04/14/20 10:27 Ruxolitinib (Ruxolitinib Phosphate) 1 ea PO BID MICHAEL Stop: 04/14/20 20:59 Last Admin: 03/15/20 20:40 Dose: 1 ea Documented by: (1) Dysphagia Dysphagia type: other dysphagia Qualified Code(s): R13.19 - Other dysphagia
[2020-03-16] MEDS: METHYLCELLULOSE POWDER 454 GM JAR PO SCH (08:55)
[2020-03-16] MEDS: RUXOLITINIB PHOSPHATE PO SCH ×2 (08:57→20:55)
[2020-03-16] MEDS: allopurinoL 300 MG TAB PO SCH (08:58)
[2020-03-16] MEDS: CALCIUM 600MG + VIT D 400 IU TAB PO SCH (08:58)
[2020-03-16] MEDS: ANASTROZOLE 1 MG TAB PO SCH (08:58)
[2020-03-16] MEDS: OMEGA-3 (PURIFIED FISH OIL) 1 GM CAP PO SCH (08:58)
[2020-03-16] MEDS: MAGNESIUM OXIDE 400 MG TAB PO SCH (08:58)
[2020-03-16] MEDS: ASPIRIN 81 MG ECTAB PO SCH (08:58)
--- NOTE | 2020-03-16 17:04 | Anesthesiology Consultation ---
Date of Service March 16, 2020 Assessment & Plan (1) Encounter for pre-operative examination: Chart Review Chart Review: Acceptable Risk for Surgery and Patient NOT seen in Pre Admission Testing Consults Requested none Additional Notes Order placed for preoperative ECG. History Surgery Operation Date: 03/16/20 09:40 Proposed Procedures p Incision and Drainage with Multiple Teeth Extractions - Berny Wright, DMD Height/Weight Height: 5 ft 3 in Weight: 89.8 kg Allergies Allergy/AdvReac Type Severity Reaction Status Date / Time No Known Allergies Allergy Verified 03/15/20 06:38 Medications Home Medications Medication Instructions Recorded Confirmed Last Taken allopurinol 300 mg PO DAILY 08/15/18 03/15/20 09/15/18 anastrozole 1 mg PO DAILY 08/15/18 03/15/20 09/15/18 aspirin 81 mg PO DAILY 08/15/18 03/15/20 09/15/18 calcium carbonate-vitamin D3 1 cap PO DAILY 08/15/18 03/15/20 09/15/18 [Calcium 600 + D(3)] magnesium oxide 400 mg PO DAILY 08/15/18 03/15/20 09/15/18 methylcellulose (laxative) 1 dose PO DAILY 08/15/18 03/15/20 Unknown [Citrucel] metoprolol tartrate 12.5 mg PO HS 08/15/18 03/15/20 09/15/18 omega [id number] oil [Fish Oil] 1 cap PO DAILY 08/15/18 03/15/20 09/15/18 amoxicillin-pot clavulanate 1 tab PO BID 03/15/20 03/15/20 Unknown ruxolitinib [Jakafi] 15 mg PO AMPM 03/15/20 03/15/20 Unknown Active Medications Generic Name Dose Route Start Last Admin Trade Name Freq PRN Reason Stop Dose Admin Allopurinol 300 mg 03/15/20 10:28 03/16/20 08:58 Allopurinol 300 Mg Tab PO 04/14/20 10:27 300 mg DAILY MICHAEL Administration Anastrozole 1 mg 03/15/20 10:28 03/16/20 08:58 Anastrozole 1 Mg Tab PO 04/14/20 10:27 1 mg DAILY MICHAEL Administration Aspirin 81 mg 03/15/20 10:28 03/16/20 08:58 Aspirin 81 Mg Ectab PO 04/14/20 10:27 81 mg DAILY MICHAEL Administration Enoxaparin Sodium 40 mg 03/15/20 22:00 03/15/20 20:46 Enoxaparin Inj 40 Mg/0.4 Ml Syr SQ 04/14/20 21:59 40 mg Q24H MICHAEL Administration Fish Oil 1 gm 03/15/20 11:00 03/16/20 08:58 [place]-3 (Purified Fish Oil) 1 Gm Cap PO 04/14/20 10:59 1 gm DAILY MICHAEL Administration Ampicillin Sodium/Sulbactam 108 mls @ 200 mls/hr 03/15/20 14:00 03/16/20 14:38 Sodium 3,000 mg/ Sodium IV 03/25/20 13:59 Infused Chloride Q6H MICHAEL Infusion Protocol Dexamethasone 10 mg/ Syringe 2.5 mls @ 1.25 mls/min 03/15/20 14:00 03/16/20 14:05 IV 04/14/20 13:59 1.25 mls/min Q6H MICHAEL Administration Magnesium Oxide 400 mg 03/15/20 11:00 03/16/20 08:58 Magnesium Oxide 400 Mg Tab PO 04/14/20 10:59 400 mg DAILY MICHAEL Administration Methylcellulose 1 gm 03/16/20 09:00 03/16/20 08:55 Methylcellulose Powder 454 Gm Jar PO 04/15/20 08:59 Not Given DAILY MICHAEL Metoprolol Tartrate 12.5 mg 03/15/20 21:00 03/15/20 20:41 Metoprolol Tartrate 25 Mg Tab PO 04/14/20 20:59 12.5 mg HS MICHAEL Administration Multivitamins/Minerals 1 tab 03/16/20 09:00 03/16/20 08:58 Calcium 600mg + Vit D 400 Iu Tab PO 04/15/20 08:59 1 tab DAILY MICHAEL Administration Ruxolitinib 1 ea 03/15/20 21:00 03/16/20 08:57 Ruxolitinib Phosphate PO 04/14/20 20:59 Not Given BID MICHAEL Past Medical History Medical History Breast cancer Right status post mastectomy and radiation Polycythemia vera PVCs (premature ventricular contractions) Uric acid nephrolithiasis Past Family History Family History Mother Coronary heart disease Failed CABG (coronary artery bypass graft) secondary to complications during CABG Father Diabetes Coronary heart disease Past Surgical History Surgical History History of colon resection Sigmoid secondary to diverticulosis History of mastectomy History of tubal ligation Previous section x3 Social History Smoking Status: Unknown if ever smoked Hx Alcohol Use: No Hx Substance Use: No Physical Exam Vital Signs Last Vital Signs Temp 36.7 C 03/16/20 15:53 Pulse 73 03/16/20 15:53 Resp 18 03/16/20 15:53 BP 147/83 H 03/16/20 15:53 Pulse Ox 93 03/16/20 15:53 Testing Laboratory Results 03/16/20 05:52 03/16/20 05:52 PT 12.7 Seconds (9.0-12.0) H 03/15/20 05:45 INR 1.2 (0.9-1.1) H 03/15/20 05:45 Hemoglobin A1c 6.2 % (4.5-5.6) H 03/16/20 05:52 COVID negative
[2020-03-16] MEDS: METOPROLOL TARTRATE 25 MG TAB PO SCH (20:56)
[2020-03-16] MEDS ORDERED: BUPIVACAINE/EPINEPHRINE 0.5% 1:200,000 1.8 ML CARP ONE (21:18)
[2020-03-16] MEDS ORDERED: CHLORHEXIDINE GLUCONATE 0.12% 480 ML ONE (21:27)
[2020-03-16] MEDS ORDERED: PROPOFOL IV EMULSION 10 MG/ML 20 ML VIAL IV ONE (21:34)
[2020-03-16] MEDS ORDERED: LIDOCAINE HCL 2% 2 ML VIAL/AMP(20MG/ML) INFIL ONE ×2 (21:34→22:52)
[2020-03-16] MEDS ORDERED: PROMETHAZINE HCL 12.5 MG in SODIUM CHLORIDE 0.9% 50 ML IV PRN (21:35)
[2020-03-16] MEDS ORDERED: fentaNYL citrate 100 MCG/2 ML VIAL ONE (21:35)
[2020-03-16] MEDS ORDERED: fentaNYL citrate 100 MCG/2 ML VIAL IV PRN (21:35)
[2020-03-16] MEDS ORDERED: METOCLOPRAMIDE HCL INJ 5 MG/ML 2 ML VIAL IV PRN (21:35)
[2020-03-16] MEDS ORDERED: ONDANSETRON INJ 2 MG/ML 2 ML VIAL IV PRN (21:35)
[2020-03-16] MEDS ORDERED: ATROPINE SULFATE 0.1 MG/ML 10ML SYR IV PRN (21:35)
[2020-03-16] MEDS ORDERED: MIDAZOLAM HCL 1 MG/ML 2ML VIAL ONE (21:35)
[2020-03-16] MEDS ORDERED: ePHEDrine sulfate 50 MG/ML AMP IV PRN (21:35)
[2020-03-16] MEDS ORDERED: HYDROmorphone INJ 2 MG/ML SYR/VIAL IV PRN (21:35)
[2020-03-16] MEDS ORDERED: ROCURONIUM BROMIDE 10 MG/ML 5 ML VIAL IV ONE (22:52)
[2020-03-16] MEDS ORDERED: ONDANSETRON INJ 2 MG/ML 2 ML VIAL ONE (22:52)
[2020-03-16] MEDS ORDERED: NEOSTIGMINE METHYLSULFATE 5 MG/5 ML SYR ONE (22:52)
[2020-03-16] MEDS ORDERED: HYDROCODONE/ACETAMINOPHEN 7.5/325MG TAB PO PRN (23:09)
--- NOTE | 2020-03-16 23:13 | Post Operative Brief Note ---
PG Immediate Post Op with CF Date of Surgery March 16, 2020 Pre & Post Diagnosis Operation Date: 03/16/20 09:40 Pre-Op Diagnosis: Bilateral jaw infections I and D left submandibular infection, multiple carious teeth Post-Op Diagnosis: Bilateral jaw infections, multiple carious teeth I identified the patient and participated in the time-out.: Yes Procedure Operation Date: 03/16/20 09:40 Actual Procedures p Incision and Drainage of Submandibular and Subperiosteal Infection; Removal of Infected/ Fractured Teeth #1,2,3,4, 14,15,16, 18, 29,30,31- Berny Wright DMD Surgeon Berny Wright, MATHEW Cat Driver none Estimated Blood Loss 6 Findings Consistent with Post-Op Diagnosis Specimens Specimen Description: None per surgeon.
[2020-03-16] MEDS ORDERED: GLYCOPYRROLATE 0.2 MG/ML VIAL ONE (23:20)
--- NOTE | 2020-03-17 00:32 | Anesthesiology Progress Note ---
Date of Service March 17, 2020 Anesthesia Post Procedure Vital Signs Vital Signs: Temp Pulse Pulse Resp BP BP Pulse Ox 03/17/20 00:05 36.5 C 60 16 146/82 H 90 03/16/20 23:48 60 20 135/68 93 03/16/20 23:43 54 L 23 148/64 H 94 03/16/20 23:38 56 L 25 H 145/75 H 94 03/16/20 23:33 55 L 17 166/79 H 94 03/16/20 23:27 54 L 21 153/66 H 93 03/16/20 23:22 54 L 23 131/97 92 03/16/20 23:18 58 L 23 110/74 95 03/16/20 19:37 36.7 C 70 18 142/63 H 90 03/16/20 15:53 36.7 C 73 18 147/83 H 93 03/16/20 15:00 80 03/16/20 11:35 36.7 C 77 18 148/78 H 92 03/16/20 07:55 36.4 C L 73 18 147/77 H 93 03/16/20 07:44 69 03/16/20 03:54 36.8 C 70 18 158/77 H 94 Transfer of Care Handoff Completed per policy Notes Mental Status: alert / awake / arousable and participated in evaluation Patient Amnestic to Procedure: Yes Nausea / Vomiting: adequately controlled Pain: adequately controlled Airway Patency, RR, SpO2: stable & adequate BP & HR: stable & adequate Hydration State: stable & adequate Anesthetic Complications: no major complications apparent
[2020-03-17] MEDS ORDERED: ALBUMIN 25% 50 ML IV ONE (01:29)
[2020-03-17] MEDS ORDERED: ALBUT/IPRATROP 3MG/0.5MG NEB 3 ML VIAL NEB STA (01:37)
[2020-03-17] MEDS: dexAMETHasone 10 MG in SYRINGE 0 ML IV SCH ×3 (02:20→14:19)
[2020-03-17 02:22] LABS: Thyroid Stimulating Hormone 0.255 uIu/ml (0.300-4.500)
[2020-03-17] MEDS: AMPICILLIN/SULBACTAM SOD 3,000 MG in 0.9 % SODIUM CHLORIDE 100 ML IV SCH ×3 (03:20→14:19)
[2020-03-17] MEDS ORDERED: KETOROLAC TROMETHAMINE 15 MG/ML VIAL IV ONE (03:34)
[2020-03-17] MEDS ORDERED: traMADol HCL 50 MG TABLET PO PRN (03:35)
[2020-03-17] MEDS ORDERED: MoRPHine SULFATE 4 MG/ML 1 ML CARP\\VIAL IV PRN (03:35)
--- NOTE | 2020-03-17 07:56 | XRay Report ---
XR chest 1V portable CLINICAL HISTORY: low o2 COMPARISON STUDY: Chest radiograph May 18, 2015. FINDINGS: Patient is rotated. There is a trace left pleural effusion. Elevation of the left hemidiaph ragm is unchanged. There are mild bibasilar opacities. There is pulmonary vascular congestion without overt pulmonary edema. Cardiomegaly is unchanged. IMPRESSION: 1. Pulmonary vascular congestion without overt pulmonary edema. 2. Small left pleural effusion. 3. Bibasilar opacities which could reflect atelectasis or consolidation. ACT 112: Negative or not required by law. Electronically signed by: Grupo Marlow M.D. 03/17/2020 7:55 AM
[2020-03-17] MEDS: allopurinoL 300 MG TAB PO SCH ×2 (08:59→09:41)
[2020-03-17] MEDS: ASPIRIN 81 MG ECTAB PO SCH ×2 (08:59→09:41)
[2020-03-17] MEDS: MAGNESIUM OXIDE 400 MG TAB PO SCH ×2 (08:59→09:40)
[2020-03-17] MEDS: METHYLCELLULOSE POWDER 454 GM JAR PO SCH ×2 (08:59→09:37)
[2020-03-17] MEDS: CALCIUM 600MG + VIT D 400 IU TAB PO SCH ×2 (08:59→09:40)
[2020-03-17] MEDS: OMEGA-3 (PURIFIED FISH OIL) 1 GM CAP PO SCH ×2 (08:59→09:41)
[2020-03-17] MEDS: RUXOLITINIB PHOSPHATE PO SCH ×2 (08:59→09:40)
[2020-03-17] MEDS: ANASTROZOLE 1 MG TAB PO SCH ×2 (09:00→09:41)
--- NOTE | 2020-03-17 09:27 | Surgery Progress Note ---
Date of Service Post op note doing well Plan D/C today follow up in office March 17, 2020 Assessment & Plan Admission and Anticipated Discharge Date Admission Date: March 15, 2020 Results & Data ([facility]) Vital Signs (Past 12 Hours) Vital Signs Temp Pulse Pulse Resp BP BP Pulse Ox 03/17/20 07:44 36.9 C 65 18 149/81 H 96 03/17/20 07:00 70 03/17/20 04:50 60 03/17/20 03:15 36.7 C 86 18 143/74 H 92 03/17/20 02:15 36.5 C 80 18 137/76 93 03/17/20 01:52 70 16 97 03/17/20 01:15 35.8 C L 59 L 16 137/74 95 03/17/20 00:45 36 C L 58 L 18 138/80 94 03/17/20 00:16 36.5 C 60 18 131/57 L 94 03/17/20 00:05 36.5 C 60 16 146/82 H 90 03/16/20 23:48 60 20 135/68 93 03/16/20 23:43 54 L 23 148/64 H 94 03/16/20 23:38 56 L 25 H 145/75 H 94 03/16/20 23:33 55 L 17 166/79 H 94 03/16/20 23:27 54 L 21 153/66 H 93 03/16/20 23:22 54 L 23 131/97 92 03/16/20 23:18 58 L 23 110/74 95 PG Care Time/CCT Total # of Minutes Spent Total Time Spent with Patient: Total time spent is greater than 50% in coordination of care (as documented) at patient's floor/unit and/or counseling patient: Coding Level of Care Code 65344 Subseq Hosp Care Lvl 1
--- NOTE | 2020-03-17 13:00 | Electrocardiogram Report ---
Test Reason : Blood Pressure : / mmHG Vent. Rate : 067 BPM Atrial Rate : 067 BPM P-R Int : 196 ms QRS Dur : 100 ms QT Int : 404 ms P-R-T Axes : 053 011 047 degrees QTc Int : 426 ms Normal sinus rhythm Possible Left atrial enlargement Borderline ECG When compared with ECG of 29-AUG-2010 08:45, Premature ventricular complexes are no longer Present Confirmed by Chas Holguin ([id number]) on 03/17/2020 1:00:13 PM Referred By: REFERRED SELF Confirmed By:Chas Holguin
--- NOTE | 2020-03-17 13:28 | Hospitalist Progress Note ---
Date of Service March 17, 2020 Assessment & Plan (1) Dental abscess: Noted to have dental abscess as mentioned in consultation report of orofacial surgeon Status post Removal of Infected/ Fractured Teeth #1,2,3,4, 14,15,16, 18,19, 29,30,31 Side: Bilateral with Incision and Drainage of Submandibular and Subperiosteal Infection Appreciate surgery input and recommendation She was seen by the surgeon this morning and was advised that she could go home Will have a follow-up appointment with orofacial surgeon Will finish the course of antibiotic with oral Augmentin (2) Dysphagia: This is a pleasant 64-year-old female who has significant past medical history of right breast CA status post mastectomy on anastrozole therapy, polycythemia vera, allergic rhinitis, history of PVC, history of uric acid nephrolithiasis, history of diverticulosis status post sigmoid resection who presents to ED secondary to left-sided tooth pain worsening with associated difficulty swallowing x2 days. In ED patient remained hemodynamically stable. She received IV Unasyn and 10 mg IV Decadron with improvement of symptoms. Soft tissue CT of neck revealed left parapharyngeal edema along with 10 mm hypodensity involving the left supraglottic region with effacement of the left piriform sinus which could represent focal edema, polyp or mucous secretion. ENT consultation is advised-appreciate input and recommendation. No current evidence of focal abscess. (3) Polycythemia vera: continue Jakafi pt receives monthly phlebotomies follows Dr. Dougie Harman H/H 13 and 42 today, Plt 125 (4) PVCs (premature ventricular contractions): continue metoprolol (5) Uric acid nephrolithiasis: continue allopurinol (6) DVT prophylaxis: SQ Lovenox Disposition: admit to med tele Follow up: PCP Dr. Wolfe upon discharge FULL CODE Pt was seen and examined in collaboration with Dr. Jeffery, please see addendum Admission and Anticipated Discharge Date Admission Date: March 15, 2020 Subjective 03/17/2020 The patient was seen and examined in medical telemetry unit She is a status post removal of infected/fractured hip #1, 2, 3, 4, 14, 15, 16, 18, 19, 29, 30 and 31 on 03/16/2020 Has been feeling a lot better and has been tolerating diet She wants to go home and will be discharged home this afternoon Review of Systems Review of Systems: All systems reviewed and are unremarkable except as noted below Ear, Nose, Mouth, Throat: + dental pain and + dental abscess (Status post surgery as mentioned earlier) Physical Exam Physical Exam: Lying in bed comfortably Constitutional: well developed, well nourished, + ill appearing and + obese; no acute distress Eyes: PERRL, conjunctivae normal, anicteric sclerae Neck: trachea midline, no thyromegaly Respiratory: normal respiratory effort; no respiratory distress Auscultation: lungs clear to auscultation bilaterally Cardiovascular: Rate/Rhythm: regular rate and regular rhythm Heart Sounds: no murmur Gastrointestinal (Abdomen): Inspection/Auscultation: abdomen normal to inspection and normal bowel sounds; abdomen not distended Percussion/Palpation: abdomen soft; abdomen nontender Musculoskeletal: No acute arthritis involving any joints Neurologic: moves all extremities; no focal motor deficits Psychiatric: A+Ox3, euthymic affect Lymphatic: no cervical or axillary lymphadenopathy Results & Data Results & Data ([facility]) Vital Signs (Past 12 Hours) Vital Signs Temp Pulse Pulse Pulse Resp BP Pulse Ox 03/17/20 13:04 36.8 C 85 59 L 18 164/83 H 93 03/17/20 11:18 36.8 C 59 L 18 164/83 H 93 03/17/20 07:44 36.9 C 65 18 149/81 H 96 03/17/20 07:00 70 03/17/20 04:50 60 03/17/20 03:15 36.7 C 86 18 143/74 H 92 03/17/20 02:15 36.5 C 80 18 137/76 93 03/17/20 01:52 70 16 97 Medications Administered Current Inpatient Medications Acetaminophen (Acetaminophen 325 Mg Tab) 650 mg PO Q4H PRN PRN Reason: Pain or Fever Stop: 04/14/20 10:27 Hydrocodone Bitart/Acetaminophen (Hydrocodone/Acetaminophen 7.5/325mg Tab) 1 tab PO 4XDQ4H PRN PRN Reason: Pain Stop: 03/30/20 23:08 Al Hydrox/Mg Hydrox/Simethicone (Aluminum/Magnesium Susp 30 Ml Udc) 15 ml PO Q4H PRN PRN Reason: Dyspepsia Stop: 04/14/20 10:27 Allopurinol (Allopurinol 300 Mg Tab) 300 mg PO DAILY MICHAEL Stop: 04/14/20 10:27 Last Admin: 03/17/20 09:41 Dose: 300 mg Documented by: Anastrozole (Anastrozole 1 Mg Tab) 1 mg PO DAILY MICHAEL Stop: 04/14/20 10:27 Last Admin: 03/17/20 09:41 Dose: 1 mg Documented by: Aspirin (Aspirin 81 Mg Ectab) 81 mg PO DAILY MICHAEL Stop: 04/14/20 10:27 Last Admin: 03/17/20 09:41 Dose: 81 mg Documented by: Fish Oil (Badger-3 (Purified Fish Oil) 1 Gm Cap) 1 gm PO DAILY MICHAEL Stop: 04/14/20 10:59 Last Admin: 03/17/20 09:41 Dose: 1 gm Documented by: Glycopyrrolate (Glycopyrrolate 0.2 Mg/Ml Vial) 0.2 mg IV Q12H PRN PRN Reason: excessive oral secretions Stop: 04/14/20 13:12 Ampicillin Sodium/Sulbactam Sodium 3,000 mg/ Sodium Chloride 108 mls @ 200 mls/hr IV Q6H [facility]; Protocol Stop: 03/25/20 13:59 Last Infusion: 03/17/20 15:01 Dose: Infused Documented by: Dexamethasone 10 mg/ Syringe 2.5 mls @ 1.25 mls/min IV Q6H [facility] Stop: 04/14/20 13:59 Last Admin: 03/17/20 14:19 Dose: 1.25 mls/min Documented by: Magnesium Hydroxide (Magnesium Hydroxide Susp 30 Ml Udc) 30 ml PO Q12H PRN PRN Reason: Constipation Stop: 04/14/20 10:27 Magnesium Oxide (Magnesium Oxide 400 Mg Tab) 400 mg PO DAILY MICHAEL Stop: 04/14/20 10:59 Last Admin: 03/17/20 09:40 Dose: 400 mg Documented by: Methylcellulose (Methylcellulose Powder 454 Gm Jar) 1 gm PO DAILY [facility] Stop: 04/15/20 08:59 Last Admin: 03/17/20 09:37 Dose: Not Given Documented by: Metoprolol Tartrate (Metoprolol Tartrate 25 Mg Tab) 12.5 mg PO HS [facility] Stop: 04/14/20 20:59 Last Admin: 03/16/20 20:56 Dose: 12.5 mg Documented by: Morphine Sulfate (Morphine Sulfate 4 Mg/Ml 1 Ml Carp\Vial) 4 mg IV Q4H PRN PRN Reason: Pain Stop: 03/31/20 03:34 Multivitamins/Minerals (Calcium 600mg + Vit D 400 Iu Tab) 1 tab PO DAILY MICHAEL Stop: 04/15/20 08:59 Last Admin: 03/17/20 09:40 Dose: 1 tab Documented by: Ondansetron HCl (Ondansetron Inj 2 Mg/Ml 2 Ml Vial) 4 mg IV Q6H PRN PRN Reason: Nausea Stop: 04/14/20 10:27 Oxymetazoline HCl (Oxymetazoline 0.05% 30 Ml Btl) 1 sprays PASTOR NOW PRN PRN Reason: ENT EVAL Stop: 04/14/20 10:22 Polyethylene Glycol (Polyethylene (Miralax) 17 Gm Pack) 17 gm PO DAILY PRN PRN Reason: Constipation Stop: 04/14/20 10:27 Ruxolitinib (Ruxolitinib Phosphate) 1 ea PO BID MICHAEL Stop: 04/14/20 20:59 Last Admin: 03/17/20 09:40 Dose: 1 ea Documented by: Tramadol HCl (Tramadol Hcl 50 Mg Tablet) 25 - 50 mg PO Q4H PRN PRN Reason: Pain Stop: 04/16/20 03:34 Last Admin: 03/17/20 12:48 Dose: 50 mg Documented by: (1) Dysphagia Dysphagia type: other dysphagia Qualified Code(s): R13.19 - Other dysphagia
--- NOTE | 2020-03-18 08:33 | Discharge Summary ---
Date of Service March 18, 2020 Admission HPI Per Admitting Provider This is a pleasant 64-year-old female who has significant past medical history of right breast CA status post mastectomy on anastrozole therapy, polycythemia vera, allergic rhinitis, history of PVC, history of uric acid nephrolithiasis, history of diverticulosis status post sigmoid resection who presents to ED secondary to left-sided tooth pain worsening with associated difficulty swallowing x2 days. She states approximately 2 days ago she developed abscess on one of her bottom left tooth. She has noticed increased pain, swelling, low- grade temperature and as of yesterday difficulty swallowing solids. She was seen in urgent care yesterday and started on Augmentin. She has had 2 doses. She presented to ED this morning due to no improvement in swallowing and concern if it were to worsen. She states temp at home has been 99 Fahrenheit. She denies any chills, sweats, lightheadedness, dizziness, drooling, shortness of breath, cough, nausea, vomiting, abdominal pain, change in bowel or urinary habits. She does have difficulty opening mouth due to pain, but denies difficulty swallowing liquids. She does have prior history of tooth abscess on her right side but not to this extent. In ED patient remained hemodynamically stable. She received IV Unasyn and 10 mg IV Decadron with improvement of symptoms. Lab work notable for WBC 12.86k, H&H 13.0 and 42.9, platelet 125, BUN 9, creatinine 0.59, glucose 144. Soft tissue CT of neck revealed left parapharyngeal edema along with 10 mm hypodensity involving the left supraglottic region with effacement of the left piriform sinus which could represent focal edema, polyp or mucous secretion. ENT consultation is advised. No current evidence of focal abscess. Admission Exam Per Admitting Provider Physical Exam: Constitutional: WD/WN, vitals as above, NAD, sitting up in bed, pleasant, conversing easily Head: Normocephalic, Atraumatic Eyes: PERRL, conjunctivae normal, anicteric sclerae ENMT: external ear and nose normal, +trismus, difficult posterior pharynx examination, uvula midline and dose rise, Neck: trachea midline, no thyromegaly + L submandibular and superior cervical adenopathy, pain to palpation, no surrounding erythema, no tripoding, drooling Respiratory: normal respiratory effort, lungs clear to auscultation, no wheeze, rales, rhonchi. Normal insp/exp effort, no accessory muscle use Cardiovascular: RRR, 1/6 OFE noted RUSB, no edema Vessels: no JVD or carotid bruit Chest: normal inspection of chest Abdomen: normal bowel sounds, soft, nontender, no hepatosplenomegaly Musculoskeletal: no cyanosis or clubbing, extremities motor strength 5/5 Skin: no rashes, warm and dry normal turgor Neurologic: PERRL, EOMI, accommodation nl, no face palsy, no dysarthria CN's II-XI intact bilaterally and moves all extremities Psychiatric: A+Ox3, euthymic affect Lymphatic: no cervical or axillary lymphadenopathy : deferred Principal Diagnosis Tooth abscess s/p removal of infected/fractured teeth, paralaryngeal edema Discharge Exam Constitutional well developed, well nourished, + ill appearing and + obese; no acute distress Eyes PERRL, conjunctivae normal, anicteric sclerae Neck trachea midline, no thyromegaly Respiratory normal respiratory effort; no respiratory distress Auscultation: lungs clear to auscultation bilaterally Cardiovascular Rate/Rhythm: regular rate and regular rhythm Heart Sounds: no murmur Gastrointestinal (Abdomen) Inspection/Auscultation: abdomen normal to inspection and normal bowel sounds; abdomen not distended Percussion/Palpation: abdomen soft; abdomen nontender Neurologic moves all extremities; no focal motor deficits Psychiatric A+Ox3, euthymic affect Lymphatic no cervical or axillary lymphadenopathy Discharge Data Allergies Allergy/AdvReac Type Severity Reaction Status Date / Time No Known Allergies Allergy Verified 03/15/20 06:38 Consultations 03/15/20 08:00 ED Decision to Admit Stat 03/15/20 08:51 Consult Otolaryngology (Head and Neck) Routine 03/15/20 09:52 Consult Oromaxillofacial Surgery Routine Procedures Performed Operation Date: 03/16/20 09:40 Actual Procedures p Removal of Infected/ Fractured Teeth #1,2,3,4, 14,15,16, 18,19, 29,30,31(Bilateral) - Berny Wright DMD s Incision and Drainage of Submandibular and Subperiosteal Infection;(Bilateral) - Berny Wright DMD Ordered Studies 03/15/20 05:42 CT soft tissue neck w con Urgent 03/15/20 19:03 CT facial bones wo con Urgent Hospital Course (1) Dental abscess: Noted to have dental abscess as mentioned in consultation report of orofacial surgeon Status post Removal of Infected/ Fractured Teeth #1,2,3,4, 14,15,16, 18,19, 29,30,31 Side: Bilateral with Incision and Drainage of Submandibular and Subperiosteal Infection Appreciate surgery input and recommendation She was seen by the surgeon this morning and was advised that she could go home Will have a follow-up appointment with orofacial surgeon Will finish the course of antibiotic with oral Augmentin (2) Dysphagia: This is a pleasant 64-year-old female who has significant past medical history of right breast CA status post mastectomy on anastrozole therapy, polycythemia vera, allergic rhinitis, history of PVC, history of uric acid nephrolithiasis, history of diverticulosis status post sigmoid resection who presents to ED secondary to left-sided tooth pain worsening with associated difficulty swallowing x2 days. In ED patient remained hemodynamically stable. She received IV Unasyn and 10 mg IV Decadron with improvement of symptoms. Soft tissue CT of neck revealed left parapharyngeal edema along with 10 mm hypodensity involving the left supraglottic region with effacement of the left piriform sinus which could represent focal edema, polyp or mucous secretion. ENT consultation is advised-appreciate input and recommendation. No current evidence of focal abscess. (3) Polycythemia vera: continue Jakafi pt receives monthly phlebotomies follows Dr. Dougie Harman H/H 13 and 42 today, Plt 125 (4) PVCs (premature ventricular contractions): continue metoprolol (5) Uric acid nephrolithiasis: continue allopurinol (6) DVT prophylaxis: SQ Lovenox - hold lovenox in the evening for surgery (unless changed by Dr. Burgos), cont. with SCDs Disposition: admit to med tele Follow up: PCP Dr. Wolfe upon discharge FULL CODE Total Time Total Time Spent Total Time Spent (In Minutes): 35 minutes Total Time Includes: Examination of the Patient, Discharge Planning, Medication Reconciliation and Communication With Other Providers Discharge Plan Discharge Items Patient Disposition: Home - Self-Care Reason For Visit: L PARAPHARYNGEAL EDEMA,TOOTH ABSCESS Discharge Diagnosis: Tooth abscess s/p removal of infected/fractured teeth, paralaryngeal edema Condition on Discharge: Good Activity: Resume your previous activity Lifting: Gradually increase as tolerated Bathing: No limitations Exercise/Sports: Gradually increase as tolerated Weightbearing: Full weightbearing Non-emergency contact: Surgeon Call non-emergency contact if: you have any medication questions, your pain is worsening, your pain is unusual for you, your temperature is above 101.5, your wound has increased redness, your wound has increased drainage and your wound pain has increased Follow-up/Referrals: Celestine Wolfe DO [Primary Care Provider] - (Date & Time 03/19/2020 3:00 PM Provider Celestine Wolfe DO Department General Internal Medicine [facility] ) Diet: Other - See Diet Comment Diet Comment: clear--full--dental soft Addtl Attending Provider Instructions: ADDITIONAL ACTIVITY RECOMMENDATIONS: * [place] teeth after every meal. It is very important to keep your mouth clean to prevent infection. SPECIAL CARE INSTRUCTIONS: * Keep ice on the side of your face for the next 24 to 36 hours. This will help keep the swelling down. * After 36 hours, apply heat (hot water bottle or heating pad) for the next two days, as often as possible. * Tomorrow start rinsing your mouth with 1/2 teaspoon salt in 8 ounces warm water. This rinse should be used every 4-6 hours. * You may experience slight nausea. To prevent this, never take your medication on an empty stomach. If nauseated, take small sips of vaughn tricia until you feel better; then you may start on applesauce and toast. * Some swelling is common. It should gradually decrease within 4-5 days. * A certain amount of bleeding is to be expected. It is often possible to control mild oozing by placing folded gauze over the area and biting down for 30 minutes. If you are unable to control excessive bleeding, call Dr Wright at [phone] * You may experience some discomfort for a few days. If pain or swelling increases, Call Dr Wright Pending Studies at Discharge: No Stand-Alone Forms: My [place], Smoking Cessation Medications and DC Order Prescriptions: New prednisone 20 mg tablet 40 mg PO BID 5 Days Qty: 20 RF: 0 Continued hydrocodone-acetaminophen 5-325 mg tablet 1 tab PO Q4H PRN (Reason: pain) Qty: 14 RF: 0 amoxicillin-pot clavulanate 875-125 mg tablet 1 tab PO BID RF: 0 Jakafi 15 mg tablet 15 mg PO AMPM RF: 0 anastrozole 1 mg tablet 1 mg PO DAILY RF: 0 aspirin 81 mg Tablet,Delayed Release (Dr/Ec) 81 mg PO DAILY RF: 0 Citrucel 500 mg Tablet 1 dose PO DAILY RF: 0 allopurinol 300 mg tablet 300 mg PO DAILY RF: 0 metoprolol tartrate 25 mg tablet 12.5 mg PO HS RF: 0 Calcium 600 + D(3) 600 mg calcium- 200 unit Capsule 1 cap PO DAILY RF: 0 omega 7-gph-phw-fish oil [Fish Oil] 1,000 mg (120 mg-180 mg) Capsule 1 cap PO DAILY RF: 0 magnesium oxide 400 mg magnesium Tablet 400 mg PO DAILY RF: 0 Discharge Orders: Discharge Order (Routine); Ordered 03/17/20 Ordered By: Berny Kendall/Other Patient Handouts: Dental Abscess, Prediabetes, Diabetes: Meal Planning, ED Dental Abscess Facial Cellulitis, A1C Admission Data Admit Date/Time: 03/15/20 08:51 Attending Provider: Devaughn Alfaro Admit Provider: Giacomo Jeffery Primary Care Provider: Celestine Wolfe Other Providers: Giacomo Jeffery ; Corinne Evans ; Berny Wright Other Interventions: Discharge Summary Assessment (RN) Last Done: 03/17/20 13:04
--- NOTE | 2020-03-23 22:16 | Operative Report ---
Post Operative Report Pre & Post Diagnosis Operation Date: 03/16/20 09:40 Pre-Op Diagnosis: Bilateral jaw infections, multiple carious teeth Post-Op Diagnosis: Bilateral jaw infections, multiple carious teeth I identified the patient and participated in the time-out.: Yes Procedure Operation Date: 03/16/20 09:40 Actual Procedures p Removal of Infected/ Fractured Teeth #1,2,3,4, 14,15,16, 18,19, 29,30,31(Bilateral) - Berny Wright DMD s Incision and Drainage of Submandibular and Subperiosteal Infection;(Bilateral) - Berny Wright DMD Removal of 11 infected teeth [id number] x 11 I&D of left and right submandibular and mandibular area Actual Procedures p Removal of Infected/ Fractured Teeth upper#1,2,3,4, 14,15,16, lower 18, 29,30,31 s Incision and Drainage of Submandibular and Subperiosteal Infection; (Bilateral) - Berny Wright DMD Once cleared for surgery general anesthesia was achieved, the eyes were protected by the anesthesia dept criteria. A time out was take for patient ID, antibiotics, equipment and position verification once all agreed the procedure began. Local anesthesia using Marcaine with a vasoconstrictor ( 1.8 ml per site) given to achieve inferior alveolar and maxillary nerve blocks A throat pack was placed after the oral cavity was irrigated with saline. Once a surgical level of anesthesia was obtained and the local anesthesia was given time for the blocks the surgery was started. Left side I&D I turned my attention to the infection which was located in the floor of the mouth and submandibular area left side, there was still some edema in the para pharyngeal area left side. There was no active swelling or pus in that deep area. Most of the swelling was in the submandibular, subperiosteal area on the left and a lesser amount on the right side due to the acute infection of the lower right molar teeth, The tongue was slightly elevated but improved from when she was first admitted. Using a 15 blade an incision was made on the alveolar ridge and from the retro molar area around # 18 and anterior to area # 28. Once the incision was made a lot of pus extruded from the site. This drainage was cultured for anaerobic and aerobic bacteria. A curved hemostat was carefully placed into the infected space along the medial side of the lower jaw and into the sublingual/submandibular and subperiosteal spaces I now extracted the infected # 18 and opened into the mandibular space between the muscles.. Some further drainage was now allowed to escape. I irrigated the wound and I&D sites and closed the flaps but allowed drainage to occur from the # 18 extraction site. I palpated the chin and submental area and no further drainage was expressed. The area was irrigated with at least 100 ml of NS solution. Right side I&D I turned my attention to the infection on lower right which was located in the submandibular area as well as the floor of the mouth, causing elevation of the tongue contributing to her admission symptoms of difficulty in swallowing. Most of the swelling was in the submandibular, subperiosteal area. The tongue was slightly elevated but improved from when she was first admitted. The flap was made from the retro molar area to area 27. Pus was expressed, I how extracted the decaying tooth fragments of teeth # 29,30, and 31 I irrigated the wound and I&D sites and closed the flaps but allowed drainage to occur from the extraction sites. I palpated the chin and submental area and no further drainage was expressed. The area was irrigated with at least 100 ml of NS solution. I now turned my attention to remove the grossly infected upper fractured and decaying teeth due to the severe soft tissue infection from the gingival tissues. Upper teeth 1,2,3,4,14,15,16 The full thick Muco-periosteal flap was made the infected upper planned for extraction The flap was reflected to expose the the subperiosteal space the bone adjacent to the teeth. The rogue was used to remove bone, the teeth were removed with dental forceps , there was a large amount of granulation tissue on the apex and some more pus that was expressed. Once the teeth were removed the sockets were curetted, bone adjusted and irrigated. Closure obtained with a 2-0 chromic. Case now completed Anesthesia dept took over To RR with all VS stable Excellent result Plan to floor discharge tomorrow with office follow up and oral antibiotics. Surgeon Berny Wright, DMD [place] none Estimated Blood Loss 6 Findings Consistent with Post-Op Diagnosis Specimens none Description of Procedure I&D and extraction of infected teeth x 11 I attest to the content of the Intraoperative Record and any orders documented therein. Any exceptions are noted below. Supervising Physician Co-Signing Physician Notes Patient seen and examined by me, darian coordinated with Sigrid Bell PA-C, please refer to her note above for further detail. Pt is a 64 y/o female who has significant past medical history of right breast CA status post mastectomy on anastrozole therapy, polycythemia vera, allergic rhinitis, history of PVC, history of uric acid nephrolithiasis, history of diverticulosis status post sigmoid resection who presents to ED secondary to left-sided tooth pain worsening with associated difficulty swallowing x2 days. In ED patient remained hemodynamically stable. She received IV Unasyn and 10 mg IV Decadron with improvement of symptoms. Soft tissue CT of neck revealed left parapharyngeal edema along with 10 mm hypodensity involving the left supraglottic region with effacement of the left piriform sinus which could represent focal edema, polyp or mucous secretion. ENT consultation is advised. No current evidence of focal abscess. She is currently sitting up in bed, in acute distress. She says that now her throat feels better, after receiving steroid and antibiotic. ENT consulted for further evaluation, and recommends close monitoring, as she may possibly need intubation if her respiratory status worsens. Continue Unasyn and Decadron, OMFS consultation recommended. She has broken left lower molar but no abscess noted on CT. Left chin is tender to palpation and patient cannot fully open her mouth. Currently she is breathing without difficulty, clear to auscultation b ilaterally without any wheezing rhonchi or crackles. Heart sounds regular. Abdomen soft, nontender, nondistended. She is alert and oriented and able to answer questions appropriately. Moves all 4 extremities spontaneously. Skin is warm dry, well-perfused. Jose D David MD
== END 2020-03-17 17:08 | disposition home or self-care (01) | DRG 138 ==
LOC: ED 05:18 → 2N 08:51 → SUATTDRO 08:51 → 2N 10:01